=== PATIENT | male | born 1955 | race Caucasian/White ===

== ENCOUNTER 2021-09-02 22:07 | Emergency (ER) | payer OTHER, MEDICARE ==
[2021-09-02 22:22] VITALS: RESP 20
[2021-09-02] MEDS ORDERED: MORPHINE SULFATE 4 MG/ML SYRINGE IVP STA (22:29)
[2021-09-02 23:04] LABS: Basophils % (A) 0 %; Eosinophils # (A) 0.1 k/uL (0-0.7); Eosinophils % (A) 1 %; HCT 42.2 % (39.0-53.0); HGB 14.3 gm/dL (13.0-17.5); Lymphocytes # (A) 1.4 k/uL (1.0-4.8); Lymphocytes % (A) 13 %; MCH 33.7 pg (25.0-35.0); MCHC 33.8 g/dL (31.0-37.0); MCV 99.6 fL (80.0-100.0); Monocytes # (A) 0.5 k/uL (0-1.0); Monocytes % (A) 5 %; Neutrophils # (A) 8.8 k/uL (1.3-7.7); Neutrophils % (A) 81 %; Platelet Count 228 k/uL (150-450); RBC 4.24 m/uL (4.30-5.90); RDW 13.5 % (11.5-15.5); WBC 10.9 k/uL (3.8-10.6)
[2021-09-02 23:12] LABS: Albumin 4.6 g/dL (3.5-5.0); Calcium 10.1 mg/dL (8.4-10.2); Potassium 4.6 mmol/L (3.5-5.1); Total Protein 8.2 g/dL (6.3-8.2)
[2021-09-02 23:23] LABS: INR 1.1 (<1.2); Partial Thromboplastin Time 25.6 sec (22.0-30.0); Prothrombin Time 11.2 sec (9.0-12.0)
--- NOTE | 2021-09-03 00:04 | CT ---
EXAMINATION TYPE: CT brain danny hager DATE OF EXAM: 09/02/2021 COMPARISON: None HISTORY: fall/pain CT DLP: 1347.7 mGycm Automated exposure control for dose reduction was used. There is large area of hypodensity involving the left frontal and temporal lobe extending into to the left parietal lobe related to old left hemisphere infarct. There is no midline shift. There is no ma ss effect. There is mild enlargement left lateral ventricle. The calvarium is intact. There is mild mucosal thickening in the ethmoid air cells. Skull base is int act. Cervical vertebra have normal spacing and alignment. Posterior elements are intact. There is no compr ession fracture. There is hypertrophic mild facet arthropathy at C3-4. 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 No acute intracranial abnormality. Mild cervical degenerative changes. No fracture.
--- NOTE | 2021-09-03 00:07 | XR ---
EXAMINATION TYPE: XR KUB DATE OF EXAM: 09/02/2021 COMPARISON: NONE HISTORY: Fall. Pain TECHNIQUE: 2 views supine FINDINGS: Bowel gas pattern is normal. There is no sign of intestinal obstruction or pneumoperitoneum . Fecal pattern is normal. There are no pathologic calcifications over the kidneys. There are spondyl otic changes in the lumbar spine. IMPRESSION: Nonacute abdomen. No pelvic fracture seen.
--- NOTE | 2021-09-03 00:12 | XR ---
EXAMINATION TYPE: XR Hip RT and AP Pelvis DATE OF EXAM: 09/02/2021 COMPARISON: NONE HISTORY: Fall. Pain TECHNIQUE: 3 views FINDINGS: Pelvic ring is intact. Proximal right femur and hip joint appear intact. Lateral view is li mited by overlapping hip joints. IMPRESSION: No fracture seen.
--- NOTE | 2021-09-03 00:13 | XR ---
EXAMINATION TYPE: XR hand limited RT DATE OF EXAM: 09/02/2021 COMPARISON: NONE HISTORY: Fall. Pain TECHNIQUE: 2 views FINDINGS: Metacarpals appear intact. Carpal bones are intact. The fingers are overlapping and in flex ion position. I see no evidence of finger fracture. There is narrowing and spurring at the first carp ometacarpal joint. IMPRESSION: Osteoarthritis at the base of the thumb. No fracture seen. Limited exam.
--- NOTE | 2021-09-03 00:14 | XR ---
EXAMINATION TYPE: XR knee limited RT DATE OF EXAM: 09/02/2021 COMPARISON: NONE HISTORY: Fall. Pain TECHNIQUE: 2 views FINDINGS: I see no fracture nor dislocation. Joint spaces are normal. There is no sign of a joint eff usion. IMPRESSION: Negative right knee exam. No fracture seen.
--- NOTE | 2021-09-03 00:16 | XR ---
EXAMINATION TYPE: XR chest 1V DATE OF EXAM: 09/02/2021 COMPARISON: NONE HISTORY: Fall. Pain TECHNIQUE: Single view FINDINGS: There is no heart failure nor confluent pneumonic infiltrate. Costophrenic angles are clear . There are no hilar masses. There is probably old posterior right upper rib fractures. Acute rib fra ctures not entirely excluded. There is osteopenia. IMPRESSION: No active cardiopulmonary disease. Pulmonary fibrosis. Right upper posterior rib fracture s of uncertain age.
--- NOTE | 2021-09-03 00:22 | ED ---
Fall HPI - General Chief Complaint: Fall Stated Complaint: Fall Time Seen by Provider: 09/02/21 22:13 Source: family, RN notes reviewed Mode of arrival: EMS - History of Present Illness Initial Comments: Patient is a 65-year-old male that presents to the emergency department comp laining of right lower extremity right abdominal and head pain. Patient's sister notes that patient fell out of his wheelchair couple days ago and hit his head. She notes that he was complaining of pain so brought him to the emergency room to get evaluated. Patient was otherwise well-appearing in no apparent distress. Patient is nonverbal due to prior stroke. Patient's right side is his weak side. Patient denied chest pain shortness of breath headache nausea vomiting diarrhea constipation fever fatigue chills. - Related Data Allergies Allergy/AdvReac Type Severity Reaction Status Date / Time Penicillins AdvReac Unknown Verified 09/02/21 22:12 Review of Systems ROS Statement: Those systems with pertinent positive or pertinent negative responses have been documented in the HPI. ROS Other: All systems not noted in ROS Statement are negative. Past Medical History Past Medical History: CVA/TIA, Hyperlipidemia, Hypertension History of Any Multi-Drug Resistant Organisms: None Reported Past Surgical History: Unable to Obtain Past Psychological History: No Psychological Hx Reported Smoking Status: Current every day smoker Past Alcohol Use History: None Reported Past Drug Use History: None Reported General Exam General appearance: alert, in no apparent distress Head exam: Present: atraumatic, normocephalic, normal inspection Eye exam: Present: normal appearance, PERRL, EOMI. Absent: scleral icterus, conjunctival injection, periorbital swelling ENT exam: Present: normal exam, mucous membranes moist Neck exam: Present: normal inspection Respiratory exam: Present: normal lung sounds bilaterally. Absent: respiratory distress, wheezes, rales, rhonchi, stridor Cardiovascular Exam: Present: regular rate, normal rhythm, normal heart sounds. Absent: systolic murmur, diastolic murmur, rubs, gallop, clicks Extremities exam: Present: normal inspection, full ROM, normal capillary refill. Absent: tenderness, pedal edema, joint swelling, calf tenderness Neurological exam: Present: alert, oriented X3 Psychiatric exam: Present: normal affect, normal mood Skin exam: Present: warm, dry, intact, normal color. Absent: rash Course Vital Signs 09/02/21 09/02/21 22:13 22:39 Temperature 98.7 F Pulse Rate 77 Respiratory 20 Rate O2 Sat by Pulse 85 L Oximetry Medical Decision Making - Medical Decision Making 65-year-old male that fell out of his wheelchair several days ago. Labs, CT of the brain and C-spine, chest x-ray, KUB, x-ray of the right hip and pelvis, x-ray of right knee, x-ray right hand ordered. All imaging negative with no acute process fractures or dislocations noted. Labs are unremarkable. Patient is agreeable with discharge home with follow-up to primary care. Case discussed with Dr. Flannery, patient can discharge home. - Lab Data Result diagrams: 09/02/21 22:41 09/02/21 22:41 Lab Results 09/02/21 09/02/21 09/02/21 Range/Units 22:41 22:41 22:41 WBC 10.9 H (3.8-10.6) k/uL RBC 4.24 L (4.30-5.90) m/uL Hgb 14.3 (13.0-17.5) gm/dL Hct 42.2 (39.0-53.0) % MCV 99.6 (80.0-100.0) fL MCH 33.7 (25.0-35.0) pg MCHC 33.8 (31.0-37.0) g/dL RDW 13.5 (11.5-15.5) % Plt Count 228 (150-450) k/uL MPV 8.0 Neutrophils % 81 % Lymphocytes % 13 % Monocytes % 5 % Eosinophils % 1 % Basophils % 0 % Neutrophils # 8.8 H (1.3-7.7) k/uL Lymphocytes # 1.4 (1.0-4.8) k/uL Monocytes # 0.5 (0-1.0) k/uL Eosinophils # 0.1 (0-0.7) k/uL Basophils # 0.0 (0-0.2) k/uL PT 11.2 (9.0-12.0) sec INR 1.1 (<1.2) APTT 25.6 (22.0-30.0) sec Sodium 137 (137-145) mmol/L Potassium 4.6 (3.5-5.1) mmol/L Chloride 98 (98-107) mmol/L Carbon Dioxide 27 (22-30) mmol/L Anion Gap 12 mmol/L BUN 19 (9-20) mg/dL Creatinine 1.28 H (0.66-1.25) mg/dL Est GFR (CKD-EPI)AfAm 67 (>60 ml/min/1.73 sqM) Est GFR (CKD-EPI)NonAf 58 (>60 ml/min/1.73 sqM) Glucose 154 H (74-99) mg/dL Calcium 10.1 (8.4-10.2) mg/dL Total Bilirubin 1.0 (0.2-1.3) mg/dL AST 37 (17-59) U/L ALT 44 (4-49) U/L Alkaline Phosphatase 86 (38-126) U/L Total Protein 8.2 (6.3-8.2) g/dL Albumin 4.6 (3.5-5.0) g/dL - Radiology Data Radiology results: report reviewed, image reviewed Chest x-ray: No active cardiopulmonary disease. Pulmonary fibrosis. Right upper posterior rib fractures of uncertain age. Right knee x-ray: Negative right knee exam. No fracture seen. X-ray right hand: Osteoarthritis at the base of the thumb. No fracture seen. Limited exam. X-ray the right hip and pelvis: No fracture seen. KUB: Nonacute abdomen. No pelvic fracture seen. 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 No acute intracranial abnormality. Mild cervical degenerative changes. No fracture. Disposition Clinical Impression: Fall, Right hip pain, Right knee pain, Hand pain, right Disposition: HOME SELF-CARE Condition: Stable Instructions (If sedation given, give patient instructions): Fall Prevention for Older Adults (ED) Additional Instructions: Please return to the Emergency Department if symptoms worsen or any other concerns. Follow-up with primary care in 1-2 days. Take Tylenol Motrin as needed for pain. Is patient prescribed a controlled substance at d/c from ED?: No Referrals: Adi Cadet DO [Primary Care Provider] - 1-2 days Time of Disposition: 00:22
[2021-09-03] MEDS ORDERED: MORPHINE SULFATE 4 MG/ML SYRINGE IVP STA (00:54)
[2021-09-03 01:37] VITALS: BP 140/84; PULSE 88; TEMP 98.1
== END 2021-09-03 01:47 | disposition home or self-care (01) ==
LOC: EEVIPCON 22:07 → EC 22:07
DX: I10 Essential (primary) hypertension (principal); M25.551 Pain in right hip; M25.561 Pain in right knee; M79.641 Pain in right hand; Z88.0 Allergy status to penicillin; Z86.73 Personal history of transient ischemic attack (TIA), and cerebral infarction without residual deficits; W07.XXXA Fall from chair, initial encounter
CPT/HCPCS: 96374; 96376; 99284; 36415; 80053; 85025; 85610; 85730; 73502; 73120; 73560; 71045; 74018; 72125; 70450; J2270 ×2